=== PATIENT | female | born 1990 ===

== ENCOUNTER 2016-12-16 08:40 | Inpatient (IN) | payer BC ==
[2016-12-16] MEDS ORDERED: Sodium Chloride 0.9% 10 ML Syringe FLUSH PRN (13:09)
[2016-12-16] MEDS ORDERED: Nalbuphine 20 MG/1 ML Amp IVPUSH PRN (13:09)
[2016-12-16] MEDS ORDERED: Ondansetron 4 MG/2 ML SDV IVPUSH PRN (13:09)
[2016-12-16] MEDS ORDERED: Oxytocin/Lactated Ringers 10 UNIT/1,000 ML BAG IV SCH ×2 (13:15)
[2016-12-16] MEDS: Lactated Ringers 1,000 ML IV SCH ×3 (13:25→20:30)
--- NOTE | 2016-12-16 14:19 | US ---
Biophysical profile: Multiple real-time images were obtained transabdominally. Comparison: Previous ultrasounds are available, most recent is 12/13/16. Dates: LMP: LMP given as 02/29/16, ALTAF 12/05/16, gestational age 41 weeks 4 days Current ultrasound: ALTAF 12/25/16, gestational age 38 weeks 5 days Earliest ultrasound (08/06/16): ALTAF 12/12/16, gestational age 40 weeks 4 days presentation: Cephalic Placenta: Posterior and fundal Amniotic fluid: AASHISH 12.9 cm Measurements: BPD: 9.43 cm - 38 weeks 3 days Head circumference: 33.63 cm - 38 weeks 4 days Abdominal circumference: 35.16 cm - 39 weeks 0 days Femur length: 7.58 cm - 38 weeks 5 days Estimated weight: 3614 g (7 lbs. 15 oz.) Heart rate: 156 BPM Cervical length: 3.7 cm Growth curves: Growth is variable for the different parameters. I do not believe any abnormal growth is present when compared to prior study. Biophysical profile: movement 2, breathing movement 0, tone 2, amniotic fluid volume 2 Impression: 1. Single intrauterine fetus currently cephalic in presentation. Dates as noted above. 2. 6 out of 8 on biophysical profile. Diagnostic code #5
--- NOTE | 2016-12-16 22:16 | PCM.LDHP ---
L&D History of Present Illness - General Date of Service: 12/16/16 Admit Problem/Dx: Patient Status Order with Admit Dx/Problem 12/16/16 11:28 Patient Status [ADT] Routine 12/16/16 13:09 Patient Status [ADT] Routine Admission Diagnosis/Problem Admission Diagnosis/Problem Source of Information: Patient History Limitations: Reports: No Limitations - History of Present Illness Introduction:: Kalyani is a 26-year-old 1 para 0 white female who is admitted to labor and delivery for evaluation nonreassuring heart tones wall seen in outpatient OB clinic today. Patient is 41-4/7 weeks gestational age and was seen for routine visit. Because of her 41-4/7 weeks status gestational age nonstress test was performed. This nonstress test was nonreactive. She was sent to labor and delivery for extended monitoring which time the variability was minimal bleeding, no reactivity was noted and decision made to proceed with induction of labor. She was started on Pitocin and has begun having contractions. Her initial evaluation showed cervix to be 2 cm, about 80% effaced, -3 station, mid to posterior position, soft. 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 ALTAF is 12/05/2016 as based upon a certain last menstrual is starting 02/29/2016. This is supported by 3 ultrasounds dated as following: Well 2015, 08/06/2016 09/10/2016. Her last menstrual period was relatively definite. His started on 02/29/2016 and last for approximately 5 days. Her cycles come every 28 days. She had menarche at age 16. course: Patient had a relatively unremarkable course. She declined flu vaccine, genetic testing and T Dap vaccine. She desires natural labor. A echogenic intracardiac focus was noted on ultrasound. It however became much less prominent and smaller with last ultrasound done at 27 weeks. Patient plans to breast-feed. She is group B strep negative. Gardnerella vaginalis was diagnosed during the and patient was treated with metronidazole. Her first visit was on 05/12/2016 at 10 weeks and 3 days. She made good fundal height growth during the course of . Her blood pressures have been normal. Her weight has increased from 147.6 pounds up to 190.6 pounds for a 43 pound weight gain. Laboratory testing showed blood which is O+. Negative and by screen. First hemoglobin is 14.4 and platelets were 252,000. She is rubella immune. RPR is nonreactive. Urine culture was unremarkable. Hepatitis B surface antigen and HIV assays were negative. GC and Chlamydia were both negative. Second trimester testing showed a healing wound to be 13.0 g/dL. Platelets are 173, 000. One-hour GTT was 142. Her three-hour GTT was normal with a fasting blood to 79, 1 hour blood sugar of 154, 2 hour blood sugar of 149 S3 or blood sugar. Her group B strep screen was negative. Allergies: none Medications: vitamins 1 daily Past medical history unremarkable. Past surgical history: 1. With some teeth removal 2006 Family history: Sr. with asthma. Paternal grandmother with breast cancer. Mother and father are alive and well. Maternal grandmother with history of arthritis, now secondary to heart problems. Paternal grandmother secondary to breast cancer. Paternal grandfather -cause unknown. No bleeding, blood clotting, anesthesia or problems noted in the family. Social history: Patient is , is Sylvain, she works at [employer] in [place]. She does not use any significant loss of alcohol , drugs or tobacco. Review of systems: Skin-negative Cardiovascular-no chest pain or exercise intolerance Respiratory-no asthma or infectious symptoms noted at this time Breasts-increased size and tenderness secondary to GI-negative -increased fundal height consistent with Neurologic-Negative Musculoskeletal -negative Physical exam: Gen. patient is well-developed, well-nourished, pleasant female stated age in no acute distress. She is alert and oriented 3 and appears to be a good historian. Blood pressure on last evaluation clinic was 130/70. Weight was 190.6 pounds. Fundal height was 41 cm. The heart rate was 141. Her height is 5 feet 7 inches. Pregravid weight was 147.6. Skin is warm and dry without lesions. HEENT, neck and back within normal limits Lungs are clear with good breath sounds in all lung chaparro. Cardiovascular exam shows regular rate without murmurs. Breast exam deferred having that done at first visit and found to be normal. Patient plans to nurse Abdomen is protuberant with with fundal height of 41 centers. 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: Social & Family History - Family History Family Medical History: Noncontributory - Tobacco Use Smoking Status *Q: Never Smoker - Caffeine Use Caffeine Use: Reports: None - Recreational Drug Use Recreational Drug Use: No H&P Review of Systems - Review of Systems: Review Of Systems: See Below L&D Exam - Exam Exam: See Below - Vital Signs Vital Signs: Last Vital Signs Temp 36.3 C 12/16/16 11:00 Pulse 72 12/16/16 11:00 Resp 16 12/16/16 11:00 BP 129/78 12/16/16 11:00 Pulse Ox 100 12/16/16 11:00 Weight: 86.545 kg - Patient Data Lab Results Last 24 hrs: Laboratory Results - last 24 hr 12/16/16 12/16/16 Range/Units 09:53 13:20 WBC 9.62 (3.98-10.04) K/mm3 RBC 4.53 (3.98-5.22) M/mm3 Hgb 13.9 (11.2-15.7) gm/L Hct 40.2 (34.1-44.9) % MCV 88.7 (79.4-94.8) fl MCH 30.7 (25.6-32.2) pg MCHC 34.6 (32.2-35.5) g/dl RDW Std Deviation 43.3 (36.4-46.3) fL Plt Count 189 (182-369) K/mm3 MPV 11.0 (9.4-12.3) fl Neut % (Auto) 74.8 H (34.0-71.1) % Lymph % (Auto) 18.0 L (19.3-51.7) % [place] % (Auto) 5.9 (4.7-12.5) % Eos % (Auto) 0.7 (0.7-5.8) Baso % (Auto) 0.1 (0.1-1.2) % Neut # (Auto) 7.19 H (1.56-6.13) K/mm3 Lymph # (Auto) 1.73 (1.18-3.74) K/mm3 [place] # (Auto) 0.57 H (0.24-0.36) K/mm3 Eos # (Auto) 0.07 (0.04-0.36) K/mm3 Baso # (Auto) 0.01 (0.01-0.08) K/mm3 Urine Color Yellow (Yellow) Urine Appearance Clear (Clear) Urine pH 7.0 (5.0-8.0) Ur Specific [place] 1.020 (1.005-1.030) Urine Protein Negative (Negative) Urine Glucose (UA) Negative (Negative) Urine Ketones Negative (Negative) Urine Occult Blood Negative (Negative) Urine Nitrite Negative (Negative) Urine Bilirubin Negative (Negative) Urine Urobilinogen 0.2 (0.2-1.0) Ur Leukocyte Esterase 1+ H (Negative) Result Diagrams: 12/16/16 13:20 Problem List Initiated/Reviewed/Updated: Yes Orders Last 24hrs: Active Orders 24 hr Category Date Time Status Patient Status [ADT] Routine ADT 12/16/16 13:09 Active Activity as Tolerated [RC] PFP Care 12/16/16 13:09 Active Communication Order [RC] ASDIRECTED Care 12/16/16 13:09 Active Heart Tones [RC] ASDIRECTED Care 12/16/16 13:09 Active Non Stress Test [RC] PER UNIT ROUTINE Care 12/16/16 11:28 Active Notify Provider [RC] PFP Care 12/16/16 13:09 Active Notify Provider [RC] PRN Care 12/16/16 13:09 Active Peripheral IV Care [RC] . DIRECTED Care 12/16/16 13:09 Active Vital Signs [RC] PER UNIT ROUTINE Care 12/16/16 11:28 Active Clear Liquid Diet [DIET] Diet 12/16/16 Dinner Active Regular Diet [DIET] Diet 12/16/16 Lunch Active Lactated Ringers [Ringers, Lactated] 1,000 ml Med 12/16/16 13:15 Active IV ASDIRECTED Nalbuphine [Nubain] Med 12/16/16 13:09 Active 10 mg IVPUSH Q2H PRN Ondansetron [Zofran] Med 12/16/16 13:09 Active 4 mg IVPUSH Q4H PRN Oxytocin/Lactated Ringers [Pitocin in LR 10 Units/1,000 Med 12/16/16 13:15 Active ML] 10 unit in 1,000 ml IV TITRATE Oxytocin/Lactated Ringers [Pitocin in LR 10 Units/1,000 Med 12/16/16 13:15 Active ML] 10 unit in 1,000 ml IV TITRATE Sodium Chloride 0.9% [Saline Flush] Med 12/16/16 13:09 Active 10 ml FLUSH ASDIRECTED PRN Electronic Heart Tones Ext w TOCO [WOMSER] Ot 12/16/16 13:09 Ordered Routine Electronic Heart Tones Internal [WOMSER] Per Unit Ot 12/16/16 13:09 Ordered Routine Peripheral IV Insertion Adult [OM.PC] Routine Ot 12/16/16 13:09 Ordered Resuscitation Status Routine Resus Stat 12/16/16 11:28 Ordered Medication Orders Lactated Ringer's (Ringers, Lactated) 1,000 mls @ 100 mls/hr IV ASDIRECTED JUDY Last Admin: 12/16/16 20:30 Dose: 100 mls/hr Infusion: 12/16/16 20:30 Dose: 100 mls/hr Admin: 12/16/16 19:12 Dose: 100 mls/hr Infusion: 12/16/16 19:12 Dose: 100 mls/hr Admin: 12/16/16 13:25 Dose: 100 mls/hr Oxytocin/Lactated Ringer's (Pitocin In Lr 10 Units/1,000 Ml) 10 unit in 1,000 mls @ 500 mls/hr IV TITRATE JUDY Oxytocin/Lactated Ringer's (Pitocin In Lr 10 Units/1,000 Ml) 10 unit in 1,000 mls @ 12 mls/hr IV TITRATE JUDY; 2 MUNITS/MIN PRN Reason: Protocol Last Titration: 12/16/16 21:35 Dose: 8 munits/min, 48 mls/hr Titration: 12/16/16 21:05 Dose: 6 munits/min, 36 mls/hr Titration: 12/16/16 20:30 Dose: 4 munits/min, 24 mls/hr Titration: 12/16/16 19:55 Dose: 2 munits/min, 12 mls/hr Titration: 12/16/16 19:13 Dose: 0 munits/min, 0 mls/hr Titration: 12/16/16 18:17 Dose: 8 munits/min, 48 mls/hr Titration: 12/16/16 18:07 Dose: 10 munits/min, 60 mls/hr Titration: 12/16/16 17:08 Dose: 8 munits/min, 48 mls/hr Titration: 12/16/16 15:53 Dose: 6 munits/min, 36 mls/hr Titration: 12/16/16 14:28 Dose: 4 munits/min, 24 mls/hr Admin: 12/16/16 13:26 Dose: 2 munits/min, 12 mls/hr Nalbuphine HCl (Nubain) 10 mg IVPUSH Q2H PRN PRN Reason: Pain (moderate 4-6) Ondansetron HCl (Zofran) 4 mg IVPUSH Q4H PRN PRN Reason: Nausea/Vomiting Sodium Chloride (Saline Flush) 10 ml FLUSH ASDIRECTED PRN PRN Reason: Keep Vein Open Assessment/Plan Comment:: Assessment: 1. 41-4/7 week intrauterine , nonreassuring testing with a nonreactive nonstress test. Patient admitted for indicated induction of labor. Procedure, risks, benefits, alternatives of care discussed in detail with patient. She appears to understand and wishes to proceed 2. Group B strep screen negative 3. Patient desires natural labor 4. Patient declined flu shot, T Dap vaccination genetic testing 5. History of Gardnerella vaginalis in pregnancytreated 6. History of small intracardiac echogenic focus which decreased in size during the course of her care 7. Patient plans to nurse. Plan: 1. Pitocin induction of membranes was artificial rupture membranes augmentation. 2. Anticipate normal spontaneous vaginal delivery 3. Monitor for meconium-stained amniotic fluid and 4 heart tone abnormalities 4. Epidural is available for the patient but she didn't wishes to proceed with natural childbirth 5. Encourage nursing.
[2016-12-17] MEDS: Lactated Ringers 1,000 ML IV SCH ×4 (01:28→08:04)
[2016-12-17] MEDS ORDERED: fentaNYL 100 MCG/2 ML SDV EPIDUR PRN (06:17)
[2016-12-17] MEDS ORDERED: diphenhydrAMINE 50 MG/ML SDV IVPUSH PRN (06:17)
[2016-12-17] MEDS ORDERED: ePHEDrine 50 MG/ML SDV IVPUSH PRN (06:17)
[2016-12-17] MEDS ORDERED: Ondansetron 4 MG/2 ML SDV IVPUSH PRN (06:17)
[2016-12-17] MEDS ORDERED: fentaNYL 100 MCG/2 ML SDV ONE (06:24)
[2016-12-17] MEDS ORDERED: Bupivacaine/fentaNYL/NS 100 ML Bag EPIDUR SCH (06:30)
--- NOTE | 2016-12-17 12:04 | PCM.PREANE ---
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) Type of Anesthesia Reaction: Unknown Family History of Anesthesia Reaction: No Transfusion History: No Prior Transfusion(s) Intubation History: Unknown - Review of Systems General: No Symptoms Pulmonary: No Symptoms Cardiovascular: No Symptoms Gastrointestinal: No symptoms Neurological: No Symptoms Other: Reports: None - Physical Assessment NPO Status Date: 12/17/16 NPO Status Time: 05:30 O2 Sat by Pulse Oximetry: 100 Respiratory Rate: 16 Vital Signs: Last Vital Signs Temp 36.3 C 12/16/16 11:00 Pulse 72 12/16/16 11:00 Resp 16 12/16/16 11:00 BP 129/78 12/16/16 11:00 Pulse Ox 100 12/16/16 11:00 Height: 1.7 m Weight: 86.545 kg ASA Class: 2 Mental Status: Alert & Oriented x3 Airway Class: Mallampati = 2 Dentition: Reports: Normal Dentition Thyro-Mental Finger Breadths: 3 Mouth Opening Finger Breadths: 3 ROM/Head Extension: Full Lungs: Clear to auscultation, Normal respiratory effort Cardiovascular: Regular Rate, Regular Rhythm - Lab Values: Laboratory Last Values WBC 9.62 K/mm3 (3.98-10.04) 12/16/16 13:20 RBC 4.53 M/mm3 (3.98-5.22) 12/16/16 13:20 Hgb 13.9 gm/L (11.2-15.7) 12/16/16 13:20 Hct 40.2 % (34.1-44.9) 12/16/16 13:20 MCV 88.7 fl (79.4-94.8) 12/16/16 13:20 MCH 30.7 pg (25.6-32.2) 12/16/16 13:20 MCHC 34.6 g/dl (32.2-35.5) 12/16/16 13:20 RDW Std Deviation 43.3 fL (36.4-46.3) 12/16/16 13:20 Plt Count 189 K/mm3 (182-369) 12/16/16 13:20 MPV 11.0 fl (9.4-12.3) 12/16/16 13:20 Neut % (Auto) 74.8 % (34.0-71.1) H 12/16/16 13:20 Lymph % (Auto) 18.0 % (19.3-51.7) L 12/16/16 13:20 [place] % (Auto) 5.9 % (4.7-12.5) 12/16/16 13:20 Eos % (Auto) 0.7 (0.7-5.8) 12/16/16 13:20 Baso % (Auto) 0.1 % (0.1-1.2) 12/16/16 13:20 Neut # (Auto) 7.19 K/mm3 (1.56-6.13) H 12/16/16 13:20 Lymph # (Auto) 1.73 K/mm3 (1.18-3.74) 12/16/16 13:20 [place] # (Auto) 0.57 K/mm3 (0.24-0.36) H 12/16/16 13:20 Eos # (Auto) 0.07 K/mm3 (0.04-0.36) 12/16/16 13:20 Baso # (Auto) 0.01 K/mm3 (0.01-0.08) 12/16/16 13:20 Urine Color Yellow (Yellow) 12/16/16 09:53 Urine Appearance Clear (Clear) 12/16/16 09:53 Urine pH 7.0 (5.0-8.0) 12/16/16 09:53 Ur Specific [place] 1.020 (1.005-1.030) 12/16/16 09:53 Urine Protein Negative (Negative) 12/16/16 09:53 Urine Glucose (UA) Negative (Negative) 12/16/16 09:53 Urine Ketones Negative (Negative) 12/16/16 09:53 Urine Occult Blood Negative (Negative) 12/16/16 09:53 Urine Nitrite Negative (Negative) 12/16/16 09:53 Urine Bilirubin Negative (Negative) 12/16/16 09:53 Urine Urobilinogen 0.2 (0.2-1.0) 12/16/16 09:53 Ur Leukocyte Esterase 1+ (Negative) H 12/16/16 09:53 Blood Type O POSITIVE 12/16/16 13:20 Gel Antibody Screen Negative 12/16/16 13:20 - Allergies Allergies/Adverse Reactions: Allergies Allergy/AdvReac Type Severity Reaction Status Date / Time No Known Allergies Allergy Verified 12/16/16 11:28 - Blood Blood Available: No Product(s) Available: None - Acknowledgements Anesthesia Type Planned: Epidural Pt an Appropriate Candidate for the Planned Anesthesia: Yes Alternatives and Risks of Anesthesia Discussed w Pt/Guardian: Yes Pt/Guardian Understands and Agrees with Anesthesia Plan: Yes PreAnesthesia Questionnaire - Past Health History Medical/Surgical History: Denies 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: - SUBSTANCE USE Smoking Status *Q: Never Smoker Recreational Drug Use History: No - HOME MEDS Home Medications: Home Meds PNV95/Ferrous Fumarate/FA [ Vitamin Tablet] 1 tab PO DAILY 12/16/16 [ History] - CURRENT (IN HOUSE) MEDS Current Meds: Current Medications Diphenhydramine HCl (Benadryl) 25 mg IVPUSH Q6H PRN PRN Reason: Pruritis Ephedrine Sulfate (Ephedrine Sulfate) 5 mg IVPUSH ASDIRECTED PRN PRN Reason: Hypotension Fentanyl (Sublimaze) 100 mcg EPIDUR Q3H PRN PRN Reason: Pain Fentanyl/Bupivacaine HCl (Fentanyl/Bupivacaine/Ns 2 Mcg-0.125% 100 Ml) 100 ml EPIDUR ASDIRECTED JUDY Last Admin: 12/17/16 06:47 Dose: 100 ml Lactated Ringer's (Ringers, Lactated) 1,000 mls @ 100 mls/hr IV ASDIRECTED JUDY Last Admin: 12/17/16 08:04 Dose: 100 mls/hr Oxytocin/Lactated Ringer's (Pitocin In Lr 10 Units/1,000 Ml) 10 unit in 1,000 mls @ 500 mls/hr IV TITRATE JUDY Oxytocin/Lactated Ringer's (Pitocin In Lr 10 Units/1,000 Ml) 10 unit in 1,000 mls @ 12 mls/hr IV TITRATE JUDY; 2 MUNITS/MIN PRN Reason: Protocol Last Titration: 12/17/16 08:34 Dose: 0 munits/min, 0 mls/hr Nalbuphine HCl (Nubain) 10 mg IVPUSH Q2H PRN PRN Reason: Pain (moderate 4-6) Last Admin: 12/17/16 04:47 Dose: 10 mg Ondansetron HCl (Zofran) 4 mg IVPUSH Q4H PRN PRN Reason: Nausea/Vomiting Ondansetron HCl (Zofran) 4 mg IVPUSH ONETIME PRN PRN Reason: Nausea/Vomiting Sodium Chloride (Saline Flush) 10 ml FLUSH ASDIRECTED PRN PRN Reason: Keep Vein Open Discontinued Medications Fentanyl (Sublimaze) Confirm Administered Dose 100 mcg .ROUTE .[employer] ONE Stop: 12/17/16 06:25 Last Admin: 12/17/16 06:47 Dose: 100 mcg
--- NOTE | 2016-12-17 12:54 | PCM.SN ---
- Free Text/Narrative Note: Kalyani is a 26-year-old 1 now para 1001 white female who was admitted yesterday afternoon for nonreassuring testing. Decision made to proceed with induction at 41-4/7 weeks gestational age. Was nonreactive and extended monitoring showed less than optimal variability. Patient underwent and adduction with Pitocin. She very slowly progressed to about 4-1/2 cm by the a.m. of 12/17/2016 and then progressed more rapidly to complete. She delivered a viable, vilchis, male , weighing 3280 g (7 pounds 3.6 ounces ), and a length of 21 inches in a left occiput anterior position. scores were 7/9 . Cord had 3 vessels and cord blood was obtained. Patient had a first-degree vaginal/perineal laceration which was closed with a short running suture of 3-0 Monocryl. Placenta delivered intact and complete in a Vinay presentation. Placenta was discarded per patient desire. Patient plans to nurse. Assessment blood loss 200 mL. Condition good.
[2016-12-17] MEDS ORDERED: Lanolin 100% Cream 7 GM Tube TOP PRN (13:34)
[2016-12-17] MEDS ORDERED: Benzocaine/Menthol 20%-0.5% Spray 56 GM Canister TOP PRN (13:34)
[2016-12-17] MEDS ORDERED: Acetaminophen 325 MG Tab PO PRN (13:34)
[2016-12-17] MEDS ORDERED: Witch Hazel Medicated Pads 100/Jar TOP PRN (13:34)
[2016-12-17] MEDS ORDERED: Bupivacaine 0.25% 10 ML SDV ONE (14:00)
[2016-12-17] MEDS: Docusate Sodium 100 MG Cap PO PRN ×2 (14:02→21:24)
[2016-12-17] MEDS: Ibuprofen 600 MG Tab PO PRN ×2 (14:02→19:15)
[2016-12-17] MEDS ORDERED: Lactated Ringers 1,000 ML ONE (15:13)
--- NOTE | 2016-12-18 09:44 | PCM.PNPP ---
- General Info Date of Service: 12/18/16 Functional Status: Reports: pain controlled - Review of Systems General: Reports: No Symptoms HEENT: Reports: no symptoms Pulmonary: Reports: no symptoms Cardiovascular: Reports: No Symptoms Gastrointestinal: Reports: No symptoms Genitourinary: Reports: no symptoms Musculoskeletal: Reports: no symptoms Skin: Reports: no symptoms Neurological: Reports: No Symptoms Psychiatric: Reports: no symptoms - General Info Date of Service: 12/18/16 - Patient Data Vital Signs - most recent: Last Vital Signs Temp 98.1 F 12/18/16 08:00 Pulse 89 12/18/16 08:00 Resp 16 12/18/16 08:00 BP 128/70 12/18/16 08:00 Pulse Ox 98 12/18/16 08:00 Weight - most recent: 190 lb 12.8 oz Lab Results - last 24 hrs: Laboratory Results - last 24 hr 12/18/16 Range/Units 06:19 WBC 14.35 H (3.98-10.04) K/mm3 RBC 3.93 L (3.98-5.22) M/mm3 Hgb 12.1 (11.2-15.7) gm/L Hct 35.4 (34.1-44.9) % MCV 90.1 (79.4-94.8) fl MCH 30.8 (25.6-32.2) pg MCHC 34.2 (32.2-35.5) g/dl RDW Std Deviation 44.1 (36.4-46.3) fL Plt Count 162 L (182-369) K/mm3 MPV 10.9 (9.4-12.3) fl Med Orders - Current: Current Medications Acetaminophen (Tylenol) 650 mg PO Q4H PRN PRN Reason: mild pain or fever Benzocaine/Menthol (Dermoplast Pain Relief [place]) 0 gm TOP ASDIRECTED PRN PRN Reason: Perineal Comfort Measure Last Admin: 12/17/16 13:52 Dose: 1 applic Docusate Sodium (Colace) 100 mg PO BID PRN PRN Reason: Constipation Last Admin: 12/17/16 21:24 Dose: 100 mg Emollient Ointment (Lansinoh Hpa) 0 gm TOP ASDIRECTED PRN PRN Reason: Sore Nipples Ibuprofen (Motrin) 600 mg PO Q4H PRN PRN Reason: Mild pain or fever Last Admin: 12/17/16 19:15 Dose: 600 mg Witch Desi (Tucks) 1 pad TOP ASDIRECTED PRN PRN Reason: Hemorrhoid pain Last Admin: 12/17/16 13:51 Dose: 1 applic Discontinued Medications Diphenhydramine HCl (Benadryl) 25 mg IVPUSH Q6H PRN PRN Reason: Pruritis Ephedrine Sulfate (Ephedrine Sulfate) 5 mg IVPUSH ASDIRECTED PRN PRN Reason: Hypotension Fentanyl (Sublimaze) 100 mcg EPIDUR Q3H PRN PRN Reason: Pain Fentanyl (Sublimaze) Confirm Administered Dose 100 mcg .ROUTE .[employer] ONE Stop: 12/17/16 06:25 Last Admin: 12/17/16 06:47 Dose: 100 mcg Fentanyl/Bupivacaine HCl (Fentanyl/Bupivacaine/Ns 2 Mcg-0.125% 100 Ml) 100 ml EPIDUR ASDIRECTED JUDY Last Admin: 12/17/16 06:47 Dose: 100 ml Lactated Ringer's (Ringers, Lactated) 1,000 mls @ 100 mls/hr IV ASDIRECTED JUDY Last Admin: 12/17/16 08:04 Dose: 100 mls/hr Oxytocin/Lactated Ringer's (Pitocin In Lr 10 Units/1,000 Ml) 10 unit in 1,000 mls @ 500 mls/hr IV TITRATE JUDY Last Admin: 12/17/16 12:58 Dose: 500 mls/hr Oxytocin/Lactated Ringer's (Pitocin In Lr 10 Units/1,000 Ml) 10 unit in 1,000 mls @ 12 mls/hr IV TITRATE JUDY; 2 MUNITS/MIN PRN Reason: Protocol Last Titration: 12/17/16 08:34 Dose: 0 munits/min, 0 mls/hr Lactated Ringer's (Ringers, Lactated) Confirm Administered Dose 1,000 mls @ as directed .ROUTE .[employer] ONE Stop: 12/17/16 15:14 Last Admin: 12/17/16 20:48 Dose: Not Given Nalbuphine HCl (Nubain) 10 mg IVPUSH Q2H PRN PRN Reason: Pain (moderate 4-6) Last Admin: 12/17/16 04:47 Dose: 10 mg Ondansetron HCl (Zofran) 4 mg IVPUSH Q4H PRN PRN Reason: Nausea/Vomiting Ondansetron HCl (Zofran) 4 mg IVPUSH ONETIME PRN PRN Reason: Nausea/Vomiting Sodium Chloride (Saline Flush) 10 ml FLUSH ASDIRECTED PRN PRN Reason: Keep Vein Open - Infant Interaction Disposition, : to Nursery Feeding: Attempted ; Nursed Fair/Poor Support Person: - Recovery Exam Fundal Tone: Firm Fundal Level: 1 Fingerbreadths Below Umbilicus Fundal Placement: Midline Lochia Amount: Small Lochia Color: Rubra/Red Perineum Description: Edematous Episiotomy/Laceration: None Bladder Status: Voiding Urinary Elimination: Voided - Exam General: alert, oriented HEENT: Mucous membr. moist/pink Lungs: Clear to auscultation, Normal respiratory effort Cardiovascular: Regular Rate, Regular Rhythm Extremities: no edema Skin: warm, dry, intact Psy/Mental Status: alert, normal affect, normal mood - Problem List & Annotations (1) 41 weeks gestation of SNOMED Code(s): 86678479 Code(s): Z3A.41 - 41 WEEKS GESTATION OF Status: Acute Current Visit: Yes (2) Obstetric vaginal laceration, delivered, current hospitalization SNOMED Code(s): 433300682 Code(s): O71.4 - OBSTETRIC HIGH VAGINAL LACERATION ALONE Status: Acute Current Visit: Yes - Problem List Review Problem List Initiated/Reviewed/Updated: No - Assessment Assessment:: Doing well first day - Plan Plan:: Assessment: . 41-09/10 week intrauterine , nonreassuring testing with a nonreactive nonstress test. Patient admitted for indicated induction of labor. Procedure, risks, benefits, alternatives of care discussed in detail with patient. She appears to understand and wishes to proceed 2. Group B strep screen negative 3. Patient desires natural labor 4. Patient declined flu shot, T Dap vaccination genetic testing 5. History of Gardnerella vaginalis in pregnancytreated 6. History of small intracardiac echogenic focus which decreased in size during the course of her care 7. Patient plans to nurse. Plan: 1. Pitocin induction of membranes was artificial rupture membranes augmentation. 2. Anticipate normal spontaneous vaginal delivery 3. Monitor for meconium-stained amniotic fluid and 4 heart tone abnormalities 4. Epidural is available for the patient but she didn't wishes to proceed with natural childbirth 5. Encourage nursing.
--- NOTE | 2016-12-19 07:09 | PCM.DCSUM1 ---
Discharge Summary - Hospital Course Free Text/Narrative:: [facility] LIVE Provider Simple Note Patient Name: KALYANI COLEY Date of : 89 Patient Status: Inpatient Attending Provider: Joss Patterson Date: 12/17/16 12:51 Initialization Date: 12/17/16 12:51 - Free Text/Narrative Note: Kalyani is a 26-year-old 1 now para 1001 white female who was admitted yesterday afternoon for nonreassuring testing. Decision made to proceed with induction at 41-4/7 weeks gestational age. Was nonreactive and extended monitoring showed less than optimal variability. Patient underwent and adduction with Pitocin. She very slowly progressed to about 4-1/2 cm by the a.m. of 12/17/2016 and then progressed more rapidly to complete. She delivered a viable, vilchis, male infant, weighing 3280 g (7 pounds 3.6 ounces ), and a length of 21 inches in a left occiput anterior position. scores were 7/9 . Cord had 3 vessels and cord blood was obtained. Patient had a first-degree vaginal/perineal laceration which was closed with a short running suture of 3-0 Monocryl. Placenta delivered intact and complete in a Vinay presentation. Placenta was discarded per patient desire. Patient plans to nurse. Assessment blood loss 200 mL. Condition good. HPI Initial Comments: [facility] LIVE Provider Simple Note Patient Name: KALYANI COLEY Date of : 89 Patient Status: Inpatient Attending Provider: Joss Patterson Date: 12/17/16 12:51 Initialization Date: 12/17/16 12:51 - Free Text/Narrative Note: Kalyani is a 26-year-old 1 now para 1001 white female who was admitted yesterday afternoon for nonreassuring testing. Decision made to proceed with induction at 41-4/7 weeks gestational age. Was nonreactive and extended monitoring showed less than optimal variability. Patient underwent and adduction with Pitocin. She very slowly progressed to about 4-1/2 cm by the a.m. of 12/17/2016 and then progressed more rapidly to complete. She delivered a viable, vilchis, male , weighing 3280 g (7 pounds 3.6 ounces ), and a length of 21 inches in a left occiput anterior position. scores were 7/9 . Cord had 3 vessels and cord blood was obtained. Patient had a first-degree vaginal/perineal laceration which was closed with a short running suture of 3-0 Monocryl. Placenta delivered intact and complete in a Vinay presentation. Placenta was discarded per patient desire. Patient plans to nurse. Assessment blood loss 200 mL. Condition good. Brief History: [facility] LIVE . Provider Simple Note. Patient Name : KALYANI COLEY [facility] Record Number: [id number]. Date of : Patient Status: Inpatient. Attending Provider: Joss Patterson FAccount Number : [id number]. Date: 12/17/16 12:51Initialization Date: 12/17/16 12:51. - Free Text/Narrative. Note: Kalyani is a 26-year-old 1 now para 1001 white female who was admitted yesterday afternoon for nonreassuring testing. Decision made to proceed with induction at 41-4/7 weeks gestational age. Was nonreactive and extended monitoring showed less than optimal variability. Patient underwent and adduction with Pitocin. She very slowly progressed to about 4-1/2 cm by the a.m. of 12/17/2016 and then progressed more rapidly to complete. She delivered a viable, vilchis, male , weighing 3280 g (7 pounds 3.6 ounces), and a length of 21 inches in a left occiput anterior position. scores were 7/9 . Cord had 3 vessels and cord blood was obtained. Patient had a first-degree vaginal/perineal laceration which was closed with a short running suture of 3-0 Monocryl. Placenta delivered intact and complete in a Vinay presentation. Placenta was discarded per patient desire. Patient plans to nurse. Assessment blood loss 200 mL. Condition good. - Discharge Data Discharge Date: 12/19/16 Discharge Disposition: Home, Self-Care 01 Condition: Good - Discharge Diagnosis/Problem(s) (1) 41 weeks gestation of SNOMED Code(s): 49377138 ICD Code: Z3A.41 - 41 WEEKS GESTATION OF Status: Acute Current Visit: Yes (2) Obstetric vaginal laceration, delivered, current hospitalization SNOMED Code(s): 510724653 ICD Code: O71.4 - OBSTETRIC HIGH VAGINAL LACERATION ALONE Status: Acute Current Visit: Yes (3) 41 weeks gestation of SNOMED Code(s): 21576304 ICD Code: Z3A.41 - 41 WEEKS GESTATION OF Status: Acute Current Visit: Yes (4) Obstetric vaginal laceration, delivered, current hospitalization SNOMED Code(s): 592032988 ICD Code: O71.4 - OBSTETRIC HIGH VAGINAL LACERATION ALONE Status: Acute Current Visit: Yes - Patient Summary/Data Complications: None Consults: None Hospital Course: Uneventful - Patient Instructions Diet: Heart Healthy Diet Driving: Do Not Drive (48 hours) Showering/Bathing: May Shower Notify Provider of: Fever, Increased Pain, Swelling and Redness - Discharge Plan Home Medications: Home Meds PNV95/Ferrous Fumarate/FA [ Vitamin Tablet] 1 tab PO DAILY 12/16/16 [ History] Acetaminophen [Tylenol] 650 mg PO Q6H PRN #0 tablet 12/19/16 [Rx] Benzocaine/Menthol [Dermoplast Pain Relief Page] 1 spray TOP ASDIRECTED PRN #0 canister 12/19/16 [Rx] Docusate Sodium [Colace] 100 mg PO BID PRN #0 cap 12/19/16 [Rx] Ibuprofen [IJD: Ibuprofen] 200 - 600 mg PO Q6H PRN #0 tablet 12/19/16 [Rx] Witch Desi [Tucks] 1 pad TOP ASDIRECTED PRN #0 pad 12/19/16 [Rx] Referrals: Joss Patterson MD [Primary Care Provider] - (6 weeks) - Discharge Summary/Plan Comment DC Time >30 min.: No - Patient Data Vitals - Most Recent: Last Vital Signs Temp 98.1 F 12/19/16 06:00 Pulse 66 12/19/16 06:00 Resp 17 12/19/16 06:00 BP 121/66 12/19/16 06:00 Pulse Ox 96 12/19/16 06:00 Weight - Most Recent: 190 lb 12.8 oz I&O - Last 24 hours: Intake & Output 12/18/16 12/19/16 12/19/16 22:59 06:59 14:59 Intake Total 120 Balance 120 Lab Results - Last 24 hrs: Laboratory Results - last 24 hr 12/18/16 Range/Units 06:19 WBC 14.35 H (3.98-10.04) K/mm3 RBC 3.93 L (3.98-5.22) M/mm3 Hgb 12.1 (11.2-15.7) gm/L Hct 35.4 (34.1-44.9) % MCV 90.1 (79.4-94.8) fl MCH 30.8 (25.6-32.2) pg MCHC 34.2 (32.2-35.5) g/dl RDW Std Deviation 44.1 (36.4-46.3) fL Plt Count 162 L (182-369) K/mm3 MPV 10.9 (9.4-12.3) fl Med Orders - Current: Current Medications Acetaminophen (Tylenol) 650 mg PO Q4H PRN PRN Reason: mild pain or fever Benzocaine/Menthol (Dermoplast Pain Relief Page) 0 gm TOP ASDIRECTED PRN PRN Reason: Perineal Comfort Measure Last Admin: 12/17/16 13:52 Dose: 1 applic Docusate Sodium (Colace) 100 mg PO BID PRN PRN Reason: Constipation Last Admin: 12/17/16 21:24 Dose: 100 mg Emollient Ointment (Lansinoh Hpa) 0 gm TOP ASDIRECTED PRN PRN Reason: Sore Nipples Ibuprofen (Motrin) 600 mg PO Q4H PRN PRN Reason: Mild pain or fever Last Admin: 12/17/16 19:15 Dose: 600 mg Witch Desi (Tucks) 1 pad TOP ASDIRECTED PRN PRN Reason: Hemorrhoid pain Last Admin: 12/17/16 13:51 Dose: 1 applic Discontinued Medications Diphenhydramine HCl (Benadryl) 25 mg IVPUSH Q6H PRN PRN Reason: Pruritis Ephedrine Sulfate (Ephedrine Sulfate) 5 mg IVPUSH ASDIRECTED PRN PRN Reason: Hypotension Fentanyl (Sublimaze) 100 mcg EPIDUR Q3H PRN PRN Reason: Pain Fentanyl (Sublimaze) Confirm Administered Dose 100 mcg .ROUTE .[employer] ONE Stop: 12/17/16 06:25 Last Admin: 12/17/16 06:47 Dose: 100 mcg Fentanyl/Bupivacaine HCl (Fentanyl/Bupivacaine/Ns 2 Mcg-0.125% 100 Ml) 100 ml EPIDUR ASDIRECTED JUDY Last Admin: 12/17/16 06:47 Dose: 100 ml Lactated Ringer's (Ringers, Lactated) 1,000 mls @ 100 mls/hr IV ASDIRECTED JUDY Last Admin: 12/17/16 08:04 Dose: 100 mls/hr Oxytocin/Lactated Ringer's (Pitocin In Lr 10 Units/1,000 Ml) 10 unit in 1,000 mls @ 500 mls/hr IV TITRATE JUDY Last Admin: 12/17/16 12:58 Dose: 500 mls/hr Oxytocin/Lactated Ringer's (Pitocin In Lr 10 Units/1,000 Ml) 10 unit in 1,000 mls @ 12 mls/hr IV TITRATE JUDY; 2 MUNITS/MIN PRN Reason: Protocol Last Titration: 12/17/16 08:34 Dose: 0 munits/min, 0 mls/hr Lactated Ringer's (Ringers, Lactated) Confirm Administered Dose 1,000 mls @ as directed .ROUTE .[employer] ONE Stop: 12/17/16 15:14 Last Admin: 12/17/16 20:48 Dose: Not Given Nalbuphine HCl (Nubain) 10 mg IVPUSH Q2H PRN PRN Reason: Pain (moderate 4-6) Last Admin: 12/17/16 04:47 Dose: 10 mg Ondansetron HCl (Zofran) 4 mg IVPUSH Q4H PRN PRN Reason: Nausea/Vomiting Ondansetron HCl (Zofran) 4 mg IVPUSH ONETIME PRN PRN Reason: Nausea/Vomiting Sodium Chloride (Saline Flush) 10 ml FLUSH ASDIRECTED PRN PRN Reason: Keep Vein Open *Q Meaningful Use (DIS) - VTE *Q VTE Criteria *Q: - Stroke *Q Stroke Criteria *Q: - AMI *Q AMI Criteria *Q:
[2016-12-19 12:59] VITALS: BP 128/67
== END 2016-12-19 13:00 | disposition home or self-care (01) | DRG 560 ==
LOC: JD.WOMH 08:40 → JD.OB 10:53 → JD.WOMH 13:48 → OBSVTOIN 12-17 12:16 → JD.OB 12-17 14:13
PROVIDERS: ADMIT Obstetrics & Gynecology; ATTEND Obstetrics & Gynecology
PROC: 10E0XZZ Delivery of Products of Conception, External Approach (ICD-10-PCS; principal; 2016-12-17)
PROC: 0HQ9XZZ Repair Perineum Skin, External Approach (ICD-10-PCS; 2016-12-17)
PROC: 10907ZC Drainage of Amniotic Fluid, Therapeutic from Products of Conception, Via Natural or Artificial Opening (ICD-10-PCS; 2016-12-17)
PROC: 3E033VJ Introduction of Other Hormone into Peripheral Vein, Percutaneous Approach (ICD-10-PCS; 2016-12-17)
PROC: 00HU33Z Insertion of Infusion Device into Spinal Canal, Percutaneous Approach (ICD-10-PCS; 2016-12-17)
PROC: 3E0R3CZ (ICD-10-PCS; 2016-12-17)
DX: O76 Abnormality in fetal heart rate and rhythm complicating labor and delivery (principal); O48.0 Post-term pregnancy; O70.0 First degree perineal laceration during delivery; O69.81X0 Labor and delivery complicated by cord around neck, without compression, not applicable or unspecified; Z3A.42 42 weeks gestation of pregnancy; Z37.0 Single live birth
CPT/HCPCS: 01967; 36415; 76816; 76819; 76819-26; 81003; 85025; 85027; 86850; 86900; 86901; A9270-GY; J2300; J2590; J3010; J7120